=== PATIENT | female | born 1945 | race Caucasian/White ===

== ENCOUNTER → 2024-02-14 06:13 | Outpatient (REF) | payer MEDICARE, BC, SELFPAY ==
[2024-02-14 10:25] LABS: % Basophils 0.7 % (0-2); % Eosinophils 2.6 % (0-6); % Immature Granulocytes 0.3 % (0-0.5); % Lymphocytes 21.1 % (20.5-51.1); % Monocytes 8.1 % (1.7-9.3); % Neutrophils 67.2 % (42.2-75.2); Absolute Eosinophils 0.2 10^3/uL (0-0.7); Absolute Lymphocytes 1.2 10^3/uL (1.2-3.4); Absolute Monocytes 0.5 10^3/uL (0.1-0.6); Absolute Neutrophils 3.9 10^3/uL (1.4-6.5); Hemoglobin 11.5 g/dL (12.0-16.0); Mean Corp Hgb Conc. 32.9 g/dL (33.0-37.0); Mean Corpuscular Hgb 31.9 pg (27.0-31.0); Mean Platelet Volume 9.2 fL (7.4-10.4); Nucleated Red Blood Cells % 0 %; Platelet Count 259 10^3/uL (130-400); Red Blood Cell Count 3.61 10^6/uL (4.20-5.40); Red Cell Dist. Width 14.2 % (11.5-14.5); White Blood Cell Count 5.8 10^3/uL (4.8-10.8)
[2024-02-14 10:48] LABS: ALT (SGPT) 22 U/L (0-35); AST (SGOT) 31 U/L (14-36); Albumin 3.6 g/dl (3.5-5.0); Alkaline Phosphatase 65 U/L (38-126); Blood Urea Nitrogen 20 mg/dl (7-17); Calcium 9.6 mg/dl (8.4-10.2); Carbon Dioxide 29 mmol/L (22-30); Chloride 104 mmol/L (98-107); Glucose 89 mg/dl (70-99); Potassium 3.9 mmol/L (3.5-5.1); Sodium 136 mmol/L (135-145); Total Bilirubin 0.5 mg/dl (0.2-1.3); Total Protein 5.8 g/dl (6.3-8.2); eGFR > 60.00
[2024-02-14 11:25] LABS: Erythrocyte Sed Rate 24 mm/hour (0-20)
== END ==
LOC: HWLAB 06:13
PROVIDERS: ATTENDING PHYSICIAN Internal Medicine Rheumatology; FAMILY PHYSICIAN Nurse Practitioner
DX: M06.9 Rheumatoid arthritis, unspecified (principal); M35.3 Polymyalgia rheumatica; M81.0 Age-related osteoporosis without current pathological fracture; R70.0 Elevated erythrocyte sedimentation rate; Z51.81 Encounter for therapeutic drug level monitoring
CPT/HCPCS: 36415; 80053; 85025; 85652; 86140

== ENCOUNTER → 2024-04-10 06:59 | Outpatient (REF) | payer MEDICARE, BC, SELFPAY ==
[2024-04-10 10:31] LABS: HDL Cholesterol 57 mg/dl; LDL Cholesterol, Calculated 37 mg/dl; Total Cholesterol 111 mg/dl (50-199); Triglyceride 87 mg/dl (10-149); Very Low Density Lipoprotein 17 mg/dl (0-30)
== END ==
LOC: HWLAB 06:59
PROVIDERS: ATTENDING PHYSICIAN Nurse Practitioner
DX: E78.2 Mixed hyperlipidemia (principal)
CPT/HCPCS: 36415; 80061

== ENCOUNTER → 2024-04-17 09:51 | Outpatient (REF) | payer MEDICARE, BC, SELFPAY | LOC: HWRCS 09:51 | PROVIDERS: ATTENDING PHYSICIAN Nurse Practitioner | DX: R60.0 Localized edema (principal) | CPT/HCPCS: 93306 ==

== ENCOUNTER → 2024-05-03 06:33 | Outpatient (REF) | payer MEDICARE, BC, SELFPAY ==
[2024-05-03 10:17] LABS: % Basophils 0.9 % (0-2); % Eosinophils 2.5 % (0-6); % Immature Granulocytes 0.3 % (0-0.5); % Lymphocytes 21.2 % (20.5-51.1); % Monocytes 6.6 % (1.7-9.3); % Neutrophils 68.5 % (42.2-75.2); Absolute Basophils 0.1 10^3/uL (0-0.2); Absolute Eosinophils 0.2 10^3/uL (0-0.7); Absolute Lymphocytes 1.4 10^3/uL (1.2-3.4); Absolute Monocytes 0.4 10^3/uL (0.1-0.6); Absolute Neutrophils 4.5 10^3/uL (1.4-6.5); Hematocrit 38.8 % (37.0-47.0); Hemoglobin 12.7 g/dL (12.0-16.0); Mean Corp Hgb Conc. 32.7 g/dL (33.0-37.0); Mean Corpuscular Hgb 31.6 pg (27.0-31.0); Mean Corpuscular Volume 96.5 fL (81.0-99.0); Mean Platelet Volume 8.9 fL (7.4-10.4); Nucleated Red Blood Cells % 0 %; Platelet Count 269 10^3/uL (130-400); Red Blood Cell Count 4.02 10^6/uL (4.20-5.40); Red Cell Dist. Width 13.7 % (11.5-14.5); White Blood Cell Count 6.5 10^3/uL (4.8-10.8)
[2024-05-03 10:23] LABS: Albumin 3.8 g/dl (3.5-5.0); Blood Urea Nitrogen 16 mg/dl (7-17); Calcium 9.8 mg/dl (8.4-10.2); Carbon Dioxide 32 mmol/L (22-30); Chloride 103 mmol/L (98-107); Glucose 95 mg/dl (70-99); Magnesium 2.2 mg/dl (1.6-2.3); Phosphorus 4.1 mg/dl (2.5-4.5); Potassium 4.4 mmol/L (3.5-5.1); Sodium 141 mmol/L (135-145); eGFR > 60.00
[2024-05-03 10:54] LABS: TSH Reflex To Free T4 7.56 uIU/ml (0.47-4.68)
== END ==
LOC: HWLAB 06:33
PROVIDERS: ATTENDING PHYSICIAN Internal Medicine Cardiovascular Disease; FAMILY PHYSICIAN Nurse Practitioner
DX: R42 Dizziness and giddiness (principal); I42.8 Other cardiomyopathies; E78.5 Hyperlipidemia, unspecified; I51.81 Takotsubo syndrome; R94.31 Abnormal electrocardiogram [ECG] [EKG]; M35.3 Polymyalgia rheumatica; R60.0 Localized edema
CPT/HCPCS: 36415; 80069; 83735; 84439; 84443; 85025

== ENCOUNTER → 2024-07-05 07:23 | Outpatient (REF) | payer MEDICARE, BC, SELFPAY ==
[2024-07-05 09:47] LABS: % Basophils 0.8 % (0-2); % Eosinophils 2.3 % (0-6); % Immature Granulocytes 0.3 % (0-0.5); % Lymphocytes 23.5 % (20.5-51.1); % Monocytes 6.6 % (1.7-9.3); % Neutrophils 66.5 % (42.2-75.2); Absolute Basophils 0.1 10^3/uL (0-0.2); Absolute Eosinophils 0.1 10^3/uL (0-0.7); Absolute Lymphocytes 1.5 10^3/uL (1.2-3.4); Absolute Monocytes 0.4 10^3/uL (0.1-0.6); Absolute Neutrophils 4.1 10^3/uL (1.4-6.5); Hematocrit 35.5 % (37.0-47.0); Hemoglobin 11.7 g/dL (12.0-16.0); Mean Corpuscular Hgb 30.8 pg (27.0-31.0); Mean Corpuscular Volume 93.4 fL (81.0-99.0); Nucleated Red Blood Cells % 0 %; Platelet Count 261 10^3/uL (130-400); Red Cell Dist. Width 13.1 % (11.5-14.5); White Blood Cell Count 6.2 10^3/uL (4.8-10.8)
[2024-07-05 10:08] LABS: ALT (SGPT) 29 U/L (0-35); AST (SGOT) 38 U/L (14-36); Albumin 3.6 g/dl (3.5-5.0); Alkaline Phosphatase 63 U/L (38-126); Blood Urea Nitrogen 17 mg/dl (7-17); Calcium 9.6 mg/dl (8.4-10.2); Carbon Dioxide 29 mmol/L (22-30); Chloride 103 mmol/L (98-107); Glucose 91 mg/dl (70-99); Potassium 4.2 mmol/L (3.5-5.1); Sodium 138 mmol/L (135-145); Total Bilirubin 0.4 mg/dl (0.2-1.3); Total Protein 5.8 g/dl (6.3-8.2); eGFR > 60.00
[2024-07-05 13:32] LABS: Erythrocyte Sed Rate 24 mm/hour (0-20)
== END ==
LOC: HWLAB 07:23
PROVIDERS: ATTENDING PHYSICIAN Internal Medicine Rheumatology; FAMILY PHYSICIAN Nurse Practitioner
DX: M06.9 Rheumatoid arthritis, unspecified (principal); M25.50 Pain in unspecified joint; M35.3 Polymyalgia rheumatica; M81.0 Age-related osteoporosis without current pathological fracture; R70.0 Elevated erythrocyte sedimentation rate; Z87.310 Personal history of (healed) osteoporosis fracture
CPT/HCPCS: 36415; 80053; 85025; 85652; 86140

== ENCOUNTER → 2024-08-09 07:46 | Outpatient (REF) | payer MEDICARE, BC, SELFPAY ==
[2024-08-09 10:53] LABS: TSH Reflex To Free T4 5.96 uIU/ml (0.47-4.68)
[2024-08-09 11:21] LABS: Free T4 1.15 ng/dl (0.78-2.19)
== END ==
LOC: HWLAB 07:46
PROVIDERS: ATTENDING PHYSICIAN Nurse Practitioner
DX: E03.8 Other specified hypothyroidism (principal)
CPT/HCPCS: 36415; 84439; 84443

== ENCOUNTER 2024-09-18 08:45 | Emergency (ER) | payer MEDICARE, BC, SELFPAY ==
[2024-09-18 08:46] VITALS: BP 128/62
--- NOTE | 2024-09-18 09:08 | ED.GENMED ---
History of Present Illness
General
Chief Complaint: Extremity Pain (non-traumatic)
Time Seen by Provider: 09/18/24 09:07
History of Present Illness
History of Present Illness:
TIME OF INITIAL ENCOUNTER: 9:10 AM
HPI: Patient presents due to right lower extremity pain without any trauma. The pain has been worsening over the last few months to the point that she has not been using a walker. She the pain is primarily localized to the proximal right thigh
however it can at times very between the inside, the outside, and 'horizontally'. The pain is not consistent. She has no Swelling. She has had no fevers. She had a partial right hip replacement in 2021 but has not orthopedics recently. She
states this does not like the time she had sciatica in the past. She feels at times she does have electrical shock kind of sensation.
EXAM:
GENERAL: Well appearing in no distress
HEENT: Moist oral mucosa
NEUROLOGIC: Excellent strength all extremities, no obvious coordination deficits
PSYCHIATRIC: Appropriate mental status, normal insight and judgement
EXTREMITIES: There is no pain with passive range of motion at the right hip, there is no bony tenderness of the right femur, she has no decreased function at the thoracolumbar spine, there is some increased ropiness to the medial musculature of the
right thigh, bounding right DP pulse, no calf tenderness or swelling
SKIN: No rash, no lesions
NUMBER AND COMPLEXITY OF PROBLEMS ADDRESSED AT THE ENCOUNTER
� Chronic conditions affecting care: Hyperlipidemia
� Acute Exacerbation and/or Progression of Chronic Illness: This is a subacute problem
� Differential Diagnosis includes: Spinal stenosis, sciatica, hip pathology less likely, muscle strain
AMOUNT AND/OR COMPLEXITY OF DATA TO BE REVIEWED AND ANALYZED
� I performed an independent evaluation of and my interpretation is:
EKG:
CT:
X-rays: X-rays personally reviewed and agree with radiologist interpretation that there is degenerative disc disease of the also 9 and no hardware/bony complication
Laboratory Studies:
Other:
� Review of other/old records: I reviewed records, the patient had echo earlier this year due to edema
� Clinical information was obtained by an independent historian: I spoke to the daughter at bedside
� Prescriptions/Medications Considered but not given: Declines analgesia
� Further testing considered but not performed:
RISK OF COMPLICATIONS AND/OR MORBIDITY OR MORTALITY OF PATIENT MANAGEMENT
� Social determinants of health affecting care: Lives at home
� Discussion with other providers:
� Escalation of care including admission/observation vs risk of discharge considered: X-rays obtained
ANY OTHER UPDATES:
11:30 AM: I reviewed x-ray results with patient. We we will try neuropathic pain medication as she also describes an electrical shock sensation to the right upper extremity which could be neuropathic in nature.
Past History
Past History
ED Past Medical History: HTN and Hypercholesterolemia; Negative Asthma, CAD, Cancer or CHF
ED Past Surgical History: Orthopedic (I&D of a staph infection in her left thumb); Negative Cardiac
Social History
Tobacco: Non-smoker
Alcohol: None
Drug: None
Personal:
Living: with family
Employment: Retired
Family History
Family History: CAD
Phy Exam
Physical Exam
Physical Exam:
See HPI
Course
Orders/Labs/Results
Orders:
Orders
09/18/24 09:28
CR Lumbar Spine Comp Min 4 Vw* Urgent
Comment:
Reason For Exam: R thigh pain
Femur, Right 2 View [CR Femur - Right Min 2 Vw] Urgent
Comment:
Reason For Exam: nontraumatic pain
Pelvis, 1 or 2 Views CR [CR Pelvis - 1 Or 2 Views ] Urgent
Comment:
Reason For Exam: R pain
Vital Signs
Initial and Last Documented VS:
Initial Vital Signs
Temp Pulse Resp BP Pulse Ox
98.3 F 66 18 128/62 98
09/18/24 08:46 09/18/24 08:46 09/18/24 08:46 09/18/24 08:46 09/18/24 08:46
Last Documented Vital Signs
Temp Pulse Resp BP Pulse Ox
98.3 F 66 18 128/62 98
09/18/24 08:46 09/18/24 08:46 09/18/24 08:46 09/18/24 08:46 09/18/24 08:46
*Critical Care Note
Total Time (30-74mins, 75-104mins- exclusive of procedures): Not Applicable
ED Attending Note
-
Portions of this chart may have been created with voice recognition software.� Occasional wrong word or��sound alike� substitutions may have occurred due to the inherent limitations of voice recognition software.
Discharge Plan
Departure
Patient Disposition: Home (Routine Discharge)
Date of Disposition: 09/18/24
Time of Disposition: 11:27
Patient with high blood pressure during this ER visit?: Yes
Discharge Problem:
Neuropathic pain
Instructions: Neuropathic pain
Prescriptions:
New
gabapentin [Neurontin] 100 mg capsule
100 mg PO TID Qty: 21 0RF
No Action
acetaminophen 325 MG tablet
650 mg PO Q4HPRN PRN (Reason: pain) 0RF
cetirizine 10 MG tablet
10 mg PO DAILY Qty: 30 0RF
aspirin 325 MG tablet
325 mg PO DAILY Qty: 30 0RF
meclizine 12.5 MG tablet
12.5 mg PO Q8HPRN PRN (Reason: vertigo) Qty: 60 0RF
ascorbic acid (vitamin C) [Vitamin C] 500 MG tablet
500 mg PO DAILY@1700 Qty: 90 0RF
calcium carbonate-vitamin D3 [Oyster Shell Calcium-Vit D3] 500 MG tablet
500 mg PO BID Qty: 60 0RF
cholecalciferol (vitamin D3) 2,000 UNITS tablet
2,000 units PO HS Qty: 30 0RF
multivitamin with folic acid [Tab-A-Ruy] 1 TABLET tablet
1 tab PO DAILY@1700 Qty: 90 0RF
Ezetimibe/Simvastatin [Ezetimibe-Simvastatin 10-20 Mg] 1 EACH Tablet
1 ea PO HS Qty: 30 0RF
Referrals:
Herman Beltran MD [Active] - Follow up in 2-3 days
Kandy Art MD [Active] - Follow up in 2-3 days
Alicia Robertson CRNP [Family Provider] -
Activity Restrictions/Additional Instructions:
X-rays of the lumbar spine show degenerative disc disease, x-rays of the pelvis and femur show appropriate positioning of the hardware with no complication or bony injury. Given the description of pain, we can try a neuropathic pain medication
called Neurontin/gabapentin. Follow-up with Dr. Beltran. I have also given the contact information for local neurologist. You could also try [id number] lidocaine patches or Salonpas patches by placing them over the affected area. Return
here if worse or any other concerns.
Interventions
Interventions:
*Risk Screen - Suicide Last Done: 09/18/24 08:46
*General Assessment Last Done: 09/18/24 08:46
*Neglect/Abuse Screening Last Done: 09/18/24 08:46
ED- Fall Risk Assessment Last Done: 09/18/24 09:50
*ED COVID-19 Vaccine History Last Done: 09/18/24 09:50
ED-Skin Assessment Last Done: 09/18/24 09:50
ED-Peripheral Vascular Assessment Last Done: 09/18/24 09:56
ED-Musculoskeletal Assessment Last Done: 09/18/24 09:50
Discharge Date and Time
Print Language: BELARUSIAN
[2024-09-18 12:00] VITALS: BP 137/59
[2024-09-18 12:05] VITALS: BP 137/59
== END 2024-09-18 12:07 | disposition home or self-care (01) ==
LOC: EMR 08:45
PROVIDERS: EMERGENCY PHYSICIAN Emergency Medicine; FAMILY PHYSICIAN Nurse Practitioner Adult Health
DX: M79.651 Pain in right thigh (principal); G62.9 Polyneuropathy, unspecified; M51.361 Other intervertebral disc degeneration, lumbar region with lower extremity pain only; M47.816 Spondylosis without myelopathy or radiculopathy, lumbar region; E78.00 Pure hypercholesterolemia, unspecified; I10 Essential (primary) hypertension; Z96.641 Presence of right artificial hip joint; Z79.82 Long term (current) use of aspirin
CPT/HCPCS: 99284; 72110; 72170; 73552

== ENCOUNTER → 2024-10-22 07:27 | Outpatient (REF) | payer MEDICARE, BC, SELFPAY | LOC: HWWDC 07:27 | PROVIDERS: ATTENDING PHYSICIAN Nurse Practitioner Adult Health | DX: Z12.31 Encounter for screening mammogram for malignant neoplasm of breast (principal) | CPT/HCPCS: 77063; 77067 ==

== ENCOUNTER → 2024-11-19 07:21 | Outpatient (REF) | payer MEDICARE, BC, SELFPAY ==
[2024-11-19 09:33] LABS: % Eosinophils 3.6 % (0-6); % Immature Granulocytes 0.5 % (0-0.5); % Lymphocytes 22.9 % (20.5-51.1); % Monocytes 7.3 % (1.7-9.3); % Neutrophils 64.7 % (42.2-75.2); Absolute Basophils 0.1 10^3/uL (0-0.2); Absolute Eosinophils 0.2 10^3/uL (0-0.7); Absolute Lymphocytes 1.4 10^3/uL (1.2-3.4); Absolute Monocytes 0.5 10^3/uL (0.1-0.6); Hematocrit 38.3 % (37.0-47.0); Hemoglobin 12.2 g/dL (12.0-16.0); Mean Corp Hgb Conc. 31.9 g/dL (33.0-37.0); Mean Corpuscular Hgb 30.5 pg (27.0-31.0); Mean Corpuscular Volume 95.8 fL (81.0-99.0); Mean Platelet Volume 8.9 fL (7.4-10.4); Nucleated Red Blood Cells % 0 %; Platelet Count 299 10^3/uL (130-400); Red Cell Dist. Width 13.2 % (11.5-14.5); White Blood Cell Count 6.2 10^3/uL (4.8-10.8)
[2024-11-19 09:45] LABS: ALT (SGPT) 21 U/L (0-35); AST (SGOT) 28 U/L (14-36); Albumin 3.7 g/dl (3.5-5.0); Alkaline Phosphatase 62 U/L (38-126); Blood Urea Nitrogen 19 mg/dl (7-17); Calcium 9.8 mg/dl (8.4-10.2); Carbon Dioxide 34 mmol/L (22-30); Chloride 101 mmol/L (98-107); Glucose 99 mg/dl (70-99); Sodium 139 mmol/L (135-145); Total Bilirubin 0.4 mg/dl (0.2-1.3); Total Protein 6.1 g/dl (6.3-8.2); eGFR > 60.00
[2024-11-19 10:24] LABS: Erythrocyte Sed Rate 32 mm/hour (0-20)
== END ==
LOC: HWLAB 07:21
PROVIDERS: ATTENDING PHYSICIAN Internal Medicine Rheumatology; FAMILY PHYSICIAN Nurse Practitioner Adult Health
DX: M06.9 Rheumatoid arthritis, unspecified (principal); M25.50 Pain in unspecified joint; M35.3 Polymyalgia rheumatica; M81.0 Age-related osteoporosis without current pathological fracture; R70.0 Elevated erythrocyte sedimentation rate; Z87.310 Personal history of (healed) osteoporosis fracture
CPT/HCPCS: 36415; 80053; 85025; 85652; 86140

== ENCOUNTER → 2025-04-15 08:42 | Outpatient (REF) | payer MEDICARE, BC, SELFPAY ==
[2025-04-15 12:41] LABS: HDL Cholesterol 59 mg/dl; LDL Cholesterol, Calculated 53 mg/dl; Total Cholesterol 128 mg/dl (50-199); Triglyceride 82 mg/dl (10-149); Very Low Density Lipoprotein 16 mg/dl (0-30)
[2025-04-15 12:53] LABS: Vitamin D, 25-OH*** 48.8 ng/mL (30-80)
[2025-04-15 13:07] LABS: TSH Reflex To Free T4 4.47 uIU/ml (0.47-4.68)
== END ==
LOC: HWLAB 08:42
PROVIDERS: ATTENDING PHYSICIAN Nurse Practitioner Adult Health
DX: E78.5 Hyperlipidemia, unspecified (principal); E03.8 Other specified hypothyroidism; Z87.39 Personal history of other diseases of the musculoskeletal system and connective tissue; M89.9 Disorder of bone, unspecified
CPT/HCPCS: 36415; 80061; 82306; 84443

== ENCOUNTER → 2025-05-11 08:16 | Outpatient (REF) | payer MEDICARE, BC, SELFPAY | LOC: PAVMRI 08:16 | PROVIDERS: ATTENDING PHYSICIAN Physician Assistant; FAMILY PHYSICIAN Nurse Practitioner Adult Health; OTHER PHYSICIAN Internal Medicine Rheumatology | DX: M54.16 Radiculopathy, lumbar region (principal) | CPT/HCPCS: 72148 ==

== ENCOUNTER → 2025-05-26 08:51 | Outpatient (REF) | payer MEDICARE, BC, SELFPAY ==
[2025-05-26 12:15] LABS: Hematocrit 38.3 % (37.0-47.0); Hemoglobin 12.4 g/dL (12.0-16.0); Mean Corp Hgb Conc. 32.4 g/dL (33.0-37.0); Mean Corpuscular Volume 93.2 fL (81.0-99.0); Nucleated Red Blood Cells % 0 %; Platelet Count 276 10^3/uL (130-400); Red Cell Dist. Width 13.2 % (11.5-14.5)
[2025-05-26 12:40] LABS: ALT (SGPT) 17 U/L (0-35); AST (SGOT) 23 U/L (14-36); Albumin 3.6 g/dl (3.5-5.0); Alkaline Phosphatase 59 U/L (38-126); Blood Urea Nitrogen 20 mg/dl (7-17); Calcium 9.1 mg/dl (8.4-10.2); Carbon Dioxide 28 mmol/L (22-30); Chloride 107 mmol/L (98-107); Glucose 98 mg/dl (70-99); Potassium 4.2 mmol/L (3.5-5.1); Sodium 139 mmol/L (135-145); Total Protein 5.9 g/dl (6.3-8.2); eGFR > 60.00
[2025-05-26 14:10] LABS: C-Reactive Protein 15.00 mg/L (0.0-10.00)
== END ==
LOC: HWLAB 08:51
PROVIDERS: ATTENDING PHYSICIAN Internal Medicine Rheumatology; FAMILY PHYSICIAN Nurse Practitioner Adult Health
DX: M06.9 Rheumatoid arthritis, unspecified (principal); M35.3 Polymyalgia rheumatica; M81.0 Age-related osteoporosis without current pathological fracture; R70.0 Elevated erythrocyte sedimentation rate; Z51.81 Encounter for therapeutic drug level monitoring; Z87.310 Personal history of (healed) osteoporosis fracture
CPT/HCPCS: 36415; 80053; 85025; 85652; 86140

== ENCOUNTER → 2025-06-09 08:02 | Outpatient (REF) | payer MEDICARE, BC, SELFPAY | LOC: HWRAD 08:02 | PROVIDERS: ATTENDING PHYSICIAN Internal Medicine Rheumatology; FAMILY PHYSICIAN Nurse Practitioner Adult Health; REFERRING PHYSICIAN Physician Assistant | DX: Z78.0 Asymptomatic menopausal state (principal); M81.0 Age-related osteoporosis without current pathological fracture; Z13.820 Encounter for screening for osteoporosis | CPT/HCPCS: 77080 ==

== ENCOUNTER → 2025-07-15 06:56 | Outpatient (REF) | payer MEDICARE, BC, SELFPAY ==
[2025-07-15 10:11] LABS: ALT (SGPT) 20 U/L (0-35); AST (SGOT) 28 U/L (14-36); Albumin 4.0 g/dl (3.5-5.0); Alkaline Phosphatase 65 U/L (38-126); Blood Urea Nitrogen 16 mg/dl (7-17); Calcium 10.1 mg/dl (8.4-10.2); Carbon Dioxide 31 mmol/L (22-30); Chloride 107 mmol/L (98-107); Glucose 90 mg/dl (70-99); Potassium 4.3 mmol/L (3.5-5.1); Sodium 140 mmol/L (135-145); Total Protein 6.3 g/dl (6.3-8.2); eGFR > 60.00
[2025-07-15 10:17] LABS: C-Reactive Protein 5.50 mg/L (0.0-10.00)
[2025-07-15 10:20] LABS: Hematocrit 40.2 % (37.0-47.0); Hemoglobin 12.8 g/dL (12.0-16.0); Mean Corp Hgb Conc. 31.8 g/dL (33.0-37.0); Mean Corpuscular Volume 94.6 fL (81.0-99.0); Nucleated Red Blood Cells % 0 %; Platelet Count 284 10^3/uL (130-400); Red Cell Dist. Width 13.3 % (11.5-14.5)
== END ==
LOC: HWLAB 06:56
PROVIDERS: ATTENDING PHYSICIAN Internal Medicine Rheumatology; FAMILY PHYSICIAN Nurse Practitioner Adult Health
DX: M06.9 Rheumatoid arthritis, unspecified (principal); M25.50 Pain in unspecified joint; M35.3 Polymyalgia rheumatica; R70.0 Elevated erythrocyte sedimentation rate
CPT/HCPCS: 36415; 80053; 85025; 85652; 86140